=== PATIENT | male | born 1955 | race Caucasian/White ===

== ENCOUNTER 2025-11-03 10:47 | Outpatient (CLI) | payer OTHER ==
[2025-11-03 12:02] LABS: MONONUCLEAR 42.5 %; POLYMORPHONUCLEAR 57.5 %
[2025-11-03 12:03] LABS: GLU PLEURAL FLUID 92 mg/dl
[2025-11-03 12:06] LABS: LDH PLEURAL FLUID 1058 U/L
== END 2025-11-03 10:52 | disposition home or self-care (01) ==
LOC: LAB 10:47
DX: Z48.813 Encounter for surgical aftercare following surgery on the respiratory system (principal)

== ENCOUNTER 2025-11-07 08:47 | Outpatient (CLI) | payer OTHER ==
[2025-11-07 10:51] LABS: GLU PERITONEAL FLUID 65.0 mg/dl; TP PERITONEAL FLUID 4.3 g/dl
== END 2025-11-07 08:56 | disposition home or self-care (01) ==
LOC: LAB 08:47
PROVIDERS: ATTEND Radiology Diagnostic Radiology
DX: C25.9 Malignant neoplasm of pancreas, unspecified (principal); R18.0 Malignant ascites